=== PATIENT | male | born 1945 | race Caucasian/White ===

== ENCOUNTER → 2018-04-07 09:04 | Outpatient (CLI) | payer OTHER, SELFPAY ==
--- NOTE | 2018-04-07 | DI.CT.S_ITS ---
PROCEDURE: CT ABDOMEN PELVIS W CON INDICATIONS: Nausea with vomiting, Generalized abdominal pain. Right upper quadrant pain TECHNIQUE: After the administration of oral and intravenous contrast, 5 mm thick sections acquired from the diaphragms to the symphysis. 5 mm thick coronal and sagittal reformats were performed. For radiation dose reduction, the following was used: automated exposure control, adjustment of mA and/or kV according to patient size. COMPARISON: [facility], CT, ABDOMEN WITHOUT CONTRAST, 03/29/2012, 9:48. FINDINGS: Image quality: Excellent. ABDOMEN: Lung bases: Lung bases are clear except for scattered subsegmental atelectasis. Heart size is normal. Solid organs: Liver is normal in size and enhancement. Gallbladder mild moderately distended. No definite wall thickening seen at this time. There is no definite pericholecystic inflammation at this time. However there is a 6 mm gallstone suspected to be within the distal cystic duct. The intra-and extrahepatic bile ducts appear nondilated. Pancreas enhances normally. Spleen is normal in size and enhancement. No adrenal nodules. Kidneys are normal in size and enhancement, without hydronephrosis. Incidental simple appearing left renal cyst. Peritoneum and bowel: Stomach, small bowel, and colon loops are normal in caliber and wall thickness. No free fluid or air. Normal appendix. Scattered colonic diverticula. The rectum is decompressed and otherwise unremarkable Nodes and vessels: No retroperitoneal or mesenteric adenopathy. Aorta and inferior vena cava are normal in caliber. Miscellaneous: No ventral hernias. PELVIS: Genitourinary: Bladder wall thickness is normal. Miscellaneous: No inguinal hernias or adenopathy. Bones: No suspicious bony lesions. No vertebral body compression fractures. IMPRESSION: 6 mm gallstone suspected to be impacted within the distal cystic duct. Mild to moderate gallbladder distention, suspicious for early/developing acute cholecystitis. Critical findings were immediately and personally telephoned to the patient's referring clinician,Kelley HERNÁNDEZ, at the time of study dictation on 04/07/18 Dictated by: Jose F Plascencia M.D. on 04/07/2018 at 10:19 Approved by: Jose F Plascencia M.D. on 04/07/2018 at 10:30
== END ==
PROVIDERS: PCP Physician Assistant; Visit Provider Physician Assistant
DX: K80.80 Other cholelithiasis without obstruction (principal); R11.2 Nausea with vomiting, unspecified; R10.11 Right upper quadrant pain
CPT/HCPCS: 74177; Q9967

== ENCOUNTER 2018-04-12 06:44 | Day surgery (SDC) | payer OTHER, SELFPAY ==
[2018-04-12] VITALS (12 sets, daily range): BP systolic 117–135; BP diastolic 60–81; PULSE 69–99; RESP 14–18; TEMP 36.2–36.6; O2SAT 96–100; BMI 22.8
--- NOTE | 2018-04-12 | PATH_ITS ---
[facility] Accession Number: [id number] . 01 Material submitted: . GALLBLADDER . 02 Diagnosis: Gallbladder, Cholecystectomy: Chronic cholecystitis with cholelithiasis. No evidence of dysplasia or malignancy. V/04/14/2018 . 02 Electronically signed: . Yudith Barajas MD, Pathologist NPI- [id number] . 01 Gross description: . Received in formalin, labeled gallbladder, is an intact gallbladder (length-8.8 cm, diameter-3.5 cm) with hidalgo-pink smooth and shiny serosa and a patent cystic duct. No lymph nodes are identified. The lumen contains brown mucoid bile and one green smooth hard calculus (0.7 x 0.7 x 0.5 cm) with a dark brown gritty cut surface. The mucosa is dacosta smooth and flat. The wall is up to 0.2 cm thick. No nodules, masses or lesions are identified. Section code: (A1) cystic duct resection margin and two serial sections from the body; (A2) two longitudinal sections from the fundus. ([id number]) /[facility] . 02 Pathologist provided ICD-10: K80.60 . 02 CPT . 768098 Specimen Comment: A duplicate report has been generated due to demographic updates. Performed at: 01 [facility] [address], [place], [place] [id number] MD Rahat Tellez MD Phone: [phone] Performed at: 02 [facility] [address] [place], [place] [id number] MD Derick Bhakta MD Phone: [phone]
[2018-04-12] MEDS: LACTATED RINGERS 1,000 ML 42 ML IV (07:26)
--- NOTE | 2018-04-12 07:38 | PM.PREOP ---
Pre-operative Note Interval Note Pre-op Check: Yes History & Physical Reviewed by Physician and Yes Exam Performed Changes: No H&P completed within 30 days and has changed as indicated here:: Patient seen and examined in pre-op area today. No changes to H&P documented and placed on chart 04/11/2018. Proceed with cholecystectomy today as planned.
[2018-04-12] MEDS: CEFAZOLIN 2 GM/100 ML FROZ.PIGGY IV (07:53)
--- NOTE | 2018-04-12 08:17 | SUR.OPER ---
Supine on padded OR bed, head on pillow, arms secured on padded arm boards at <90 degrees abduction, legs uncrossed, safety belt at thigh, tape over blanket over lower legs.
[2018-04-12] MEDS: LIDOCAINE 1% W/EPI INJ 20 ML INJ (08:27)
[2018-04-12] MEDS: BUPIVACAINE 0.5% (PF) VIAL 30 ML INJ (08:27)
--- NOTE | 2018-04-12 09:44 | PM.OP.1 ---
Operative Date/Time/Diagnoses Date of procedure: 04/12/18 Time of procedure: 09:44 Pre-op diagnosis: Chronic cholecystitis secondary to cholelithiasis Post-op diagnosis: same Procedure & Clinicians Procedure: Laparoscopic cholecystectomy Same procedure as scheduled: Yes Indications: 72-year-old male with intermittent right upper quadrant abdominal pain for the last several years. He had a recent severe episode 1 week ago. Examination and evaluation were consistent with symptomatic cholelithiasis. He was recommended to undergo laparoscopic cholecystectomy. Surgeon: Claus Wilkes Click Yes if Unassisted: Yes Anesthesia Type: General Operative Notes Findings: 1. Enlarged thickened gallbladder consistent with cholecystitis 2. Significant adhesions between omentum and gallbladder wall consistent with chronic cholecystitis 3. Impacted gallstone within the neck of the gallbladder 4. Otherwise normal liver, stomach, colon, small bowel, and duodenum within the limits of laparoscopic visualization Closure Type: primary Specimen(s): other (Gallbladder) Implants & Drains: None Estimated Blood Loss (mL): 50 Blood products transfused: none Procedure in detail: After obtaining informed consent the patient was brought to the operating room placed supine on the table. After satisfactory induction of anesthesia the abdomen was prepped and draped in usual sterile fashion. SCOAP time out was performed per standard protocol. A 1 :1 mixture 1% lidocaine with 1: 100,000 epinephrine and 0.5% plain Marcaine was injected in the skin and subcutaneous tissue at the inferior aspect of the umbilicus for postoperative analgesia. Vertical midline incision for distance of approximately 2 cm was created at the inferior aspect of the umbilicus with 11 scalpel blade. Blunt dissection revealed the rectus fascia which was divided in the midline with 11 scalpel blade. Desiree clamps were used to secure the edges of the fascia elevated into the operative field. Two individual interrupted 0 Vicryl sutures were then placed superiorly and inferiorly to secure the fascia. Underlying peritoneum was visualized and secured between hemostats then sharply entered with 11 scalpel blade. Under direct visualization a blunt 12 mm Costello trocar was inserted into the abdomen and a carbon dioxide pneumoperitoneum was created. Abdomen was visually explored with a 30 degree 5 mm laparoscoped. Findings are as above. Patient was placed in reverse Trendelenburg position and appropriate position was chosen for placement of a 5 mm epigastric trocar. Area was anesthetized with local anesthesia, skin incision created with 11 scalpel blade, and trocar was placed to the right of the falciform ligament under direct laparoscopic visualization. In a similar fashion 2 other 5 mm trocars were placed in the right lateral abdomen. Gallbladder was noted to be quite tense and was decompressed with needle trocar retrieving normal bile. Fundus of the gallbladder was then secured with a ratcheted grasper and retracted superiorly and medially over the liver edge. Significant adhesions were taken down with a combination of blunt dissection using a Jessika grasper as well as monopolar cautery. Infundibulum of the gallbladder were secured with a 2nd grasper and retracted inferiorly and laterally. Meticulous dissection in the triangle of Calot was performed with a combination of the [place] dissect her and Kittner dissect her in order to expose the cystic duct. Junction of the cystic duct with the infundibulum of the gallbladder just below the impacted gallstone was clearly identified. Duct was skeletonized the surrounding connective tissue and critical view of the liver bed between the avascular plane was clearly identified. Three clips were placed proximally on the duct and 1 at the junction with the gallbladder. Duct was then divided with the scissors. In a similar fashion the cystic artery was identified and clipped twice proximally once distally and then divided with the scissors. Monopolar cautery was used to release the gallbladder from the liver bed. Specimen was placed in an endo-pouch and retrieved through the umbilical incision. Specimen was sent for permanent section. Hemostasis was achieved on the liver bed with monopolar cautery. Right upper quadrant was irrigated with copious amounts of sterile saline solution and suction from the abdomen. Irrigant returned clear. Liver bed was again inspected meticulously and noted to be hemostatic. Previously placed clips were in good position with no evidence of hemorrhage or bile leak. Patient was returned to the supine position in the right upper quadrant was again irrigated. Irrigant returned clear. Instruments and trocars were removed under direct visualization and carbon dioxide evacuated. Hemostasis was verified. Fascia at the umbilical site was closed with the previously placed 0 Vicryl suture. Skin at all 4 incisions was then closed in a running subcuticular fashion with 4 0 Monocryl suture. Dermal adhesive was applied to the skin. Anesthesia was reversed and patient extubated in the operating room. He was taken recovery in stable condition. Complications: none Condition: stable Disposition: PACU Plan for aftercare: 1. Discharge to home 2. Follow up in surgery Clinic in 2 weeks
[2018-04-12] MEDS: OXYCODONE/ACETAMINOPHEN 5/325 TABLET 1 TAB PO (10:01)
== END 2018-04-12 11:07 | disposition home or self-care (01) ==
PROVIDERS: PCP Physician Assistant; Visit Provider Surgery
PROC: 0FT44ZZ Resection of Gallbladder, Percutaneous Endoscopic Approach (ICD-10-PCS; CPT 47562; principal; 2018-04-12 07:45)
DX: K80.10 Calculus of gallbladder with chronic cholecystitis without obstruction (principal); I25.9 Chronic ischemic heart disease, unspecified; K82.8 Other specified diseases of gallbladder
CPT/HCPCS: 47562; J0690; J2250; J2405; J2704; J3010

== ENCOUNTER → 2020-08-06 12:11 | Outpatient (CLI) | payer MEDICARE, SELFPAY ==
[2020-08-06] MEDS: COVID-19 VACC #1, MRNA(MOD) 100 MCG/0.5 ML VIAL IM (12:19)
== END ==
PROVIDERS: PCP Physician Assistant; Visit Provider Internal Medicine
DX: Z23 Encounter for immunization (principal)
CPT/HCPCS: 0011A; 91301

== ENCOUNTER → 2020-09-03 12:21 | Outpatient (CLI) | payer MEDICARE, SELFPAY ==
[2020-09-03] MEDS: COVID-19 VACC #2, MRNA(MOD) 100 MCG/0.5 ML VIAL IM (12:32)
== END ==
PROVIDERS: PCP Physician Assistant; Visit Provider Internal Medicine
DX: Z23 Encounter for immunization (principal)
CPT/HCPCS: 0012A; 91301

== ENCOUNTER → 2021-04-16 16:35 | Outpatient (CLI) | payer OTHER, SELFPAY ==
--- NOTE | 2021-04-16 16:37 | DI.MRI.S_ITS ---
PROCEDURE: MR BRAIN (IAC) WWO CON INDICATIONS: Unspecified sensorineural hearing loss TECHNIQUE: Noncontrast sagittal T1 spin echo, axial FLAIR, axial gradient echo, axial diffusion and ADC through the brain. Axial thin-slice 3D CISS, coronal TruFISP, axial T1 spin echo with fat saturation through the internal auditory canals. After the administration of contrast, thin slice axial and coronal T1 spin echo with fat saturation through the internal auditory canals, and axial T1 spin echo with fat saturation through the brain. COMPARISON: None. FINDINGS: Image quality: Excellent. Cerebellopontine angles: No cerebellopontine angle masses. Inner ear structures appear normally formed. No suspicious enhancement in the internal auditory canal or along the course of the 7th cranial nerve. CSF spaces: Ventricles are normal in size and shape. No extra-axial fluid collections. Basal cisterns are patent. Brain: No intracranial bleeds or mass effects. Modi-white matter interface is intact. No abnormal intracranial enhancement. Diffusion weighted images demonstrate no acute ischemic insults. Brainstem appears normal. Normal intravascular flow voids are present. Note is made of age-appropriate brain parenchymal volume loss and chronic small vessel ischemic changes. Skull and face: Calvarial marrow signal is normal. Orbits appear normal. Sinuses: Sinuses and mastoids are clear. Moderate leftward nasal septal deviation is incidentally noted. IMPRESSION: No significant abnormality is seen. Specifically, no masses or abnormal enhancement are seen within the cerebellopontine angle cisterns or within the internal auditory canals. Dictated by: David Alvarenga M.D. on 04/16/2021 at 17:20 Approved by: David Alvarenga M.D. on 04/16/2021 at 17:21
== END ==
PROVIDERS: PCP Physician Assistant; Referring Provider Otolaryngology; Visit Provider Otolaryngology
DX: H90.5 Unspecified sensorineural hearing loss (principal); H91.21 Sudden idiopathic hearing loss, right ear
CPT/HCPCS: 70553